=== PATIENT | male | born 1980 | race Hispanic/Latino ===

== ENCOUNTER 2021-08-17 18:57 | Emergency (ER) | payer OTHER ==
[~2021-08-17] VITALS: Ht 162.6 cm; Wt 81.6 kg
[2021-08-17 19:01] VITALS: BP 157/101
== END 2021-08-17 20:25 | disposition left against medical advice (07) ==
LOC: EDH 18:57
DX: M25.531 Pain in right wrist (principal); Z53.21 Procedure and treatment not carried out due to patient leaving prior to being seen by health care provider
CPT/HCPCS: 73100

== ENCOUNTER → 2024-12-30 | Emergency (ER) | payer BC ==
[~2024-12-30] VITALS: Ht 165.1 cm; Wt 79.4 kg
[2024-12-30 14:34] VITALS: BP 148/98; PULSE 90; RESP 16; TEMP 98.5
== END ==
LOC: EDH 14:33
DX: R10.12 Left upper quadrant pain (principal); Z53.21 Procedure and treatment not carried out due to patient leaving prior to being seen by health care provider